=== PATIENT | female | born 1940 | race Caucasian/White ===

== ENCOUNTER 2019-02-15 06:59 | Emergency (ER) | payer MEDICARE, OTHER, SELFPAY ==
[2019-02-15 07:12] VITALS: BP 198/104; PULSE 74; RESP 18; TEMP 37.1; O2SAT 96
--- NOTE | 2019-02-15 07:30 | W.ED.GENAD ---
Discharge Plan Disposition Patient Disposition: HOME Condition: Good Discharge Details Chief Complaint: Nk/Back Pain Clinical Impression: Contusion of rib on right side Primary Care Provider: Zoie,Local ED Provider: Lorene Osborne Home Meds and New Rx's Prescriptions: No Action No Known Home Meds RF: 0 Discharge Instructions Instructions: Rib Contusion (ED) Additional Instructions: Apply ice to the affected areas several times daily for 20 minutes at a time. Use the incentive spirometer as directed several times within each hour to encourage deep breaths to prevent pneumonia. Alternate 500 mg of Tylenol every 4 hours and 600 mg of ibuprofen every 6 hours as needed and directed for pain. Use the [id number] Lidoderm patches as needed and directed for pain. Be sure to eat before you take ibuprofen. If you develop any stomach upset, you can consider taking Zantac or Pepcid [id number]. Follow-up with your primary care doctor within the next week for reevaluation. Return to the emergency department if you develop any worsening or new concerning symptoms of fever, chest pain, shortness of breath. Discharge Data Discharge Date/Time-TO BE ENTERED AT DEPARTURE: 02/15/19 10:25 Discharge Physician: Lorene Osborne Medical Decision Making <Mike Rizo DO - Last Filed: 02/15/19 21:17> This is a pleasant 79-year-old female with past medical history of hypertension who presents today for evaluation of right rib pain. Patient states that 1 to 2 hours ago she slipped on some wooden steps and landed on her right ribs. She did not hit her head, she had no loss of consciousness. Currently she has mild pain in the right ribs around ribs 6 7 and 8, no scapular tenderness, no significant arm tenderness or deformity. No other evidence of significant trauma. Will get a chest x-ray to rule out acute rib fracture, give Lidoderm patch, Tylenol, Motrin and reassess. She does not have significant improvement with this she may require rib block. Case will be signed out to my colleague Dr. Lorene Osborne chest and rib x-ray results, and reassessment. 8 AM X-ray results have returned negative for acute fracture however I do believe that there is a small fracture around rib 8 on review. White count may be slightly off but they do feel that there is a definite slight rib irregularity. We will do incentive spirometry testing, and reassess after pain medication have been administered and had time to take effect. FINDINGS: Bones/joints: Normal. Soft tissues: Normal. IMPRESSION: No acute findings. PROCEDURE INFORMATION: Exam: XR Chest, 2 Views Exam date and time: 02/15/2019 7:42 AM Age: 79 years old Clinical history: Chest wall pain; Patient HX: Right sided rib pain, patient fell down 3 or 4 stairs. TECHNIQUE: Imaging protocol: XR of the chest Views: 2 views. COMPARISON: No relevant prior studies available. FINDINGS: Lungs: Patchy opacities at the lung bases likely reflect atelectasis Pleural space: Unremarkable. No pleural effusion. No pneumothorax. Heart/Mediastinum: Unremarkable. No cardiomegaly. Bones/joints: Unremarkable. IMPRESSION: Thank you for allowing us to participate in the care of your patient. Dictated and Authenticated by: Sacha Piedra MD 02/15/2019 7:47 AM Eastern Time ([place] & [place]) <Lorene Osborne DO - Last Filed: 02/15/19 19:07> 0800 -- please see Dr. Rizo's note for initial presentation and plan. 79-year-old female who presented with right upper rib pain after slip off steps landing on her right side. No head injury, LOC, vomiting, chest pain, dizziness or any other injuries. She had a chest x-ray which was negative for fracture without acute lung disease. She has a Lidoderm patch in place with tenderness to palpation right upper ribs. Lungs clear to auscultation. No c-spine tenderness. Case endorsed to follow-up on patient's response to Tylenol, ibuprofen and Lidoderm patch with consideration for rib block if pain not improved. 0820 --patient denies any relief after meds and is requesting a rib block. She declines any narcotic pain medication. 1000 --rib block performed at bedside per anesthesia which patient tolerated well. Patient states her pain is improving and she feels good to go home. She is advised to continue ibuprofen and Tylenol and [id number] Lidoderm patches. She is advised to follow-up with her primary care doctor for reevaluation and to return anytime if worse. HPI <Mike R [place], DO - Last Filed: 02/15/19 21:17> General Date/Time Provider Initiated Documentation: 02/15/19 07:10. HPI Narrative: This is a pleasant 79-year-old female with a past medical history of hypertension who presents today for evaluation of right rib pain. Patient states that 1 to 2 hours ago she fell down wooden steps, landed on her right ribs, since then she has had mild pain and soreness there. She has not taken any Tylenol or Motrin. Pain is worsened with movement, palpation and breathing. Improved by nothing. No radiation to the left chest, she did not strike her head. She had no loss of consciousness. She is on no blood thinners. She denies any cough, numbness tingling or weakness. She has no other complaints. She is currently visiting from out of town. Related Data Home Medications Medication Instructions Recorded Confirmed Unknown [No Known Home Meds] 02/15/19 02/15/19 Allergies Allergy/AdvReac Type Severity Reaction Status Date / Time No Known Allergies Allergy Unverified 02/15/19 07:15 General Stated Complaint: Nk/Back Pain FRANCISCO: 4 Review of Systems <Mike Rizo DO - Last Filed: 02/15/19 21:17> All systems reviewed & are unremarkable except as noted in HPI and below PFSH <Mike Rizo DO - Last Filed: 02/15/19 21:17> Social History Smoking/Tobacco Use Status: Never Alcohol Intake: never Drug use: Never Substance use type: does not use Do you feel safe at home: Yes Do you feel safe in your relationship?: Yes Exam <Mike Rizo DO - Last Filed: 02/15/19 21:17> Narrative Exam Narrative: 1.Const: Well-nourished, Well-developed, appearing stated age 2.Eyes: PERRL, no conjunctival injection, and symmetrical lids. 3.ENT: Atraumatic external nose and ears. Moist MM. Neck: Symmetric, trachea midline, No thyromegaly. 4.CVS: +S1/S2, No murmurs or gallops. Peripheral pulses 2+ and equal in all extremities. Brisk capillary refill in all extremities. 5.RESP: Airway clear, no obstructions. No abrasions or ecchymosis. Chest movement symmetric with respirations. Mild chest wall tenderness over the patient's right ribs, primarily over ribs 6 7 and 8. Trachea midline. No crepitus. No step offs. No paradoxical movements. Lungs are clear to auscultation bilaterally. No rales, rhonchi, wheezing or stridor. Breath sound symmetric. No Sucking chest wounds. No clinical evidence of significant chest trauma. 6.GI: Soft, Nontender/Nondistended, No hepatosplenomegaly. No guarding or rebound. 7.MSK: Normocephalic/Atraumatic, Extremities w/o deformityNo cyanosis or clubbing, Normal movement of all extremities. Patient's right upper extremity demonstrates minimal tenderness over the mid humerus, however no pain with movement, and she demonstrates notably normal strength no evidence of weakness deformity or laxity. No scapular tenderness, no shoulder tenderness on the right. 8.Skin: Warm, Dry. No rashes or lesions. 9.Neuro: porcelain buildup assistant II-XII grossly intact. Sensation grossly intact, no focal neurologic deficits. 10.Psych: (AAO) x3. Appropriate mood and affect Course <Mike Rizo, - Last Filed: 02/15/19 21:17> Vital Signs Vital signs: Vital Signs Temperature 37.1 C 02/15/19 07:12 Pulse 74 02/15/19 07:12 Respiratory Rate 18 02/15/19 07:12 Blood Pressure 198/104 H 02/15/19 07:12 Pulse Oximetry 96 02/15/19 07:12 Temperature 37.1 C 02/15/19 07:12 Temperature Source Temporal Artery Scan 02/15/19 07:12 Pulse 74 02/15/19 07:12 Respiratory Rate 18 02/15/19 07:12 Respiratory Effort Non-Labored 02/15/19 07:12 Blood Pressure 198/104 H 02/15/19 07:12 Blood Pressure Position Sitting 02/15/19 07:12 Pulse Oximetry 96 02/15/19 07:12 Oxygen Delivery Method Room Air 02/15/19 07:12 Oxygen Flow Rate 0 02/15/19 07:12 Pain Level 8 02/15/19 07:12 Comment 02/15/19 07:12
--- NOTE | 2019-02-15 07:43 | DI.RAD_ITS ---
EXAM: XR RIBS RT W PA LAT CHEST INDICATION: fall, r/o right rib fractures. COMPARISON: No exams were available for comparison TECHNIQUE: 2D digital imaging was performed. FINDINGS: The heart size is normal. The aorta is tortuous. There are mild underlying fibrotic changes. No holt perimposed infiltrate, effusion or pulmonary edema is seen. There is no evidence of pneumothorax. A marker was placed over the right rib in the area of the patient's pain. There are nondisplaced fract ures of the right 7th and 8th ribs with question of a nondisplaced 6th rib fracture. There is a mode rate to severe lower thoracic compression fracture, likely old. There is a mild mid thoracic ashvin laverne fracture. IMPRESSION: Right 7th and 8th rib fractures. No evidence of pneumothorax. Thoracic compression fractures, likel y old. Clinical correlation is recommended.
--- NOTE | 2019-02-15 07:47 | DI.VRAD_ITS ---
PROCEDURE INFORMATION: Exam: XR Right Ribs Exam date and time: 02/15/2019 7:42 AM Age: 79 years old Clinical history: Chest wall pain; Patient HX: Right sided rib pain, patient fell down 3 or 4 stairs. TECHNIQUE: Imaging protocol: XR Right ribs. Views: 2 views. COMPARISON: No relevant prior studies available. FINDINGS: Bones/joints: Normal. Soft tissues: Normal. IMPRESSION: No acute findings. PROCEDURE INFORMATION: Exam: XR Chest, 2 Views Exam date and time: 02/15/2019 7:42 AM Age: 79 years old Clinical history: Chest wall pain; Patient HX: Right sided rib pain, patient fell down 3 or 4 stairs. TECHNIQUE: Imaging protocol: XR of the chest Views: 2 views. COMPARISON: No relevant prior studies available. FINDINGS: Lungs: Patchy opacities at the lung bases likely reflect atelectasis Pleural space: Unremarkable. No pleural effusion. No pneumothorax. Heart/Mediastinum: Unremarkable. No cardiomegaly. Bones/joints: Unremarkable. IMPRESSION: Dictated and Authenticated by: Sacha Piedra MD. Ordering:FER Mckeon MD
[2019-02-15] MEDS: Ibuprofen 800 MG TAB PO (07:50)
[2019-02-15] MEDS: Acetaminophen 500 MG TAB 1000 MG PO (07:50)
[2019-02-15] MEDS: Lidocaine 5% Patch 1 PATCH TP (07:50)
[2019-02-15] MEDS: Bupivacaine 0.5% Pres-Free 30 ML VIAL (09:13)
[2019-02-15] MEDS: Bupivacaine LIPOSOME/PF 133 MG/10 ML VIAL IJ (09:13)
[2019-02-15 10:24] VITALS: BP 177/80; PULSE 71; RESP 18; O2SAT 98
== END 2019-02-15 10:25 | disposition home or self-care (01) ==
PROVIDERS: Emergency Provider Physician Assistant
DX: R07.81 Pleurodynia (principal); S20.221A Contusion of right back wall of thorax, initial encounter; W10.8XXA Fall (on) (from) other stairs and steps, initial encounter; I10 Essential (primary) hypertension
CPT/HCPCS: 64450; 76942; 99283; 71046; 71100